=== PATIENT | male | born 1945 | race Caucasian/White ===

== ENCOUNTER 2017-09-26 08:49 | Day surgery (SDC) | payer MEDICARE, OTHER ==
[2017-09-26] MEDS ORDERED: Lactated Ringer's 1,000 ML IV ONE (09:14)
[2017-09-26] MEDS ORDERED: Lidocaine 2% MPF (5 ml) Inj ONE (10:40)
[2017-09-26] MEDS ORDERED: Propofol 10 mg/ml Inj (20 ML) ONE (10:40)
[2017-09-26 11:21] VITALS: TEMP 97
[2017-09-26 11:33] VITALS: BP 128/83; PULSE 74; RESP 16; O2SAT 98
== END 2017-09-26 11:50 | disposition home or self-care (01) ==
LOC: H.ENDO 08:49
PROVIDERS: ATTEND Internal Medicine Gastroenterology
DX: Z12.11 Encounter for screening for malignant neoplasm of colon (principal); K64.1 Second degree hemorrhoids; K62.1 Rectal polyp
CPT/HCPCS: 45380; 88305; J2704; J7120